=== PATIENT | male | born 1990 | race Caucasian/White ===

== ENCOUNTER 2019-03-05 09:41 | Emergency (ER) | payer OTHER ==
[~2019-03-05] VITALS: Ht 190.5 cm; Wt 99.8 kg
[2019-03-05] MEDS ORDERED: AUGMENTIN 500-1 EACH PO (11:46)
[2019-03-05 12:01] VITALS: BP 101/68
== END 2019-03-05 12:03 | disposition home or self-care (01) ==
LOC: M.ERS 09:41
DX: S61.111A Laceration without foreign body of right thumb with damage to nail, initial encounter (principal); W54.0XXA Bitten by dog, initial encounter; Y92.89 Other specified places as the place of occurrence of the external cause; Y93.89 Activity, other specified; Y99.8 Other external cause status